=== PATIENT | female | born 1960 | race Caucasian/White ===

== ENCOUNTER 2016-09-05 15:40 | Outpatient (CLI) | payer OTHER | END 2016-09-05 15:41 | disposition home or self-care (01) | DX: M51.37 Other intervertebral disc degeneration, lumbosacral region (principal); M16.0 Bilateral primary osteoarthritis of hip ==

== ENCOUNTER 2017-04-07 18:17 | Emergency (ER) | payer OTHER ==
[2017-04-07 18:29] VITALS: BP 120/74
[2017-04-07] MEDS ORDERED: predniSONE 20 MG TABLET PO STA (18:43)
--- NOTE | 2017-04-07 18:45 | ED Physician Documentation ---
History of Present Illness - Stated complaint Stated Complaint: FACIAL RASH - Chief complaint Chief Complaint: Heent - History obtained from History obtained from: Patient (pt is here for evaluation of a rash that she has had for the past couple days around her mouth, no new exposures, no travel, no ABX use, has not had this in the past, no fevers, no problems breathing, no problems swallowing.) Review of Systems Constitutional: denies: Fever, Chills, Myalgias Nose: denies: Rhinorrhea / runny nose Throat: denies: Oral lesions / sores, Sore throat, Swollen tonsils, Swallowed foreign body Cardiac: denies: Chest pain / pressure Respiratory: denies: Dyspnea, Cough GI: denies: Abdominal Pain, Nausea, Vomiting, Diarrhea : denies: Dysuria Skin: reports: Rash (around mouth) Musculoskeletal: denies: Back pain Neurologic: denies: Generalized weakness, Headache, LOC PD PAST MEDICAL HISTORY - Past Medical History Past Medical History: Yes Cardiovascular: [place] - Past Surgical History 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, 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 HEENT: Tonsil/Adenoidectomy - Present Medications Home Medications: Ambulatory Orders Medication Instructions Recorded Confirmed Citalopram [CeleXA] 40 mg PO DAILY 04/12/15 04/07/17 Estradiol 2 mg PO DAILY 04/12/15 04/07/17 traZODone [Desyrel] 50 mg PO QPM 04/12/15 04/07/17 Carvedilol 6.25 mg PO DAILY 04/07/17 04/07/17 Clindamycin Phosphate [Cleocin T] 60 ml TP BID #1 lotion 04/07/17 Gabapentin 300 mg PO QPM 04/07/17 04/07/17 Loratadine [Claritin] 10 mg PO DAILY #20 tablet 04/07/17 predniSONE [Prednisone] 60 mg PO DAILY #6 tablet 04/07/17 - Allergies Allergies/Adverse Reactions: Allergies Allergy/AdvReac Type Severity Reaction Status Date / Time levofloxacin [From Levaquin] Allergy Anaphylaxis Verified 04/07/17 18:29 codeine AdvReac Emesis Verified 04/07/17 18:29 Penicillins AdvReac Unknown Verified 04/07/17 18:29 - Social History Does the pt smoke?: No Smoking Status: Never smoker Does the pt drink ETOH?: Yes Does the pt have substance abuse?: No - Immunizations Immunizations are current?: Yes Immunizations: TDAP current <10years PD ED PE NORMAL - Vitals Vital signs reviewed: Yes - General General: Alert and oriented X 3, Well developed/nourished - HEENT HEENT: Atraumatic, Moist mucous membranes, Pharynx benign - Neck Neck: No adenopathy - Derm Derm: Other (raash located bilateral uner her lower lip, no pustules, no blisters, no crusting. ) - Neuro Neuro: Alert and oriented X 3 - Psych Psych: Normal mood, Normal affect Results - Vitals Vitals: Vital Signs - 24 hr 04/07/17 18:26 Temperature 36.2 C L Heart Rate 67 Respiratory 16 Rate Blood Pressure 120/74 O2 Saturation 97 Oxygen O2 Source Room air PD MEDICAL DECISION MAKING - ED course Complexity details: d/w patient ED course: pt with a rash under her lower lip. is bilateral so less likely zoster. no signs of supra infection. pt w/o oral lesions. Discussed with her. gave the first dose of steroids in the ER will she home with rx for 2 more days. pt given return precautions. Departure - Departure Disposition: 01 Home, Self Care Clinical Impression: Rash Condition: Good Instructions: Rash Skin Self Care Follow-Up: Skinny Prince MD [Primary Care Provider] - Prescriptions: Clindamycin Phosphate [Cleocin T] 60 ml TP BID #1 lotion Loratadine [Claritin] 10 mg PO DAILY #20 tablet predniSONE [Prednisone] 60 mg PO DAILY #6 tablet Comments: Return to the ER for any new or worsening symptoms, problems breathing or any other spread of the rash.
[2017-04-07] MEDS ORDERED: predniSONE 20 MG TABLET ONE (18:51)
== END 2017-04-07 19:02 | disposition home or self-care (01) ==
LOC: ED 18:17
DX: R21 Rash and other nonspecific skin eruption (principal); I25.2 Old myocardial infarction
CPT/HCPCS: 99283; J7512

== ENCOUNTER 2017-08-19 10:41 | Outpatient (CLI) | payer OTHER ==
[2017-08-19 18:54] LABS: BUN - BLOOD UREA NITROGEN 13 mg/dL (6-20); CALCIUM 10.1 mg/dL (8.5-10.3); CARBON DIOXIDE - CO2 30 mmol/L (21-32); CHLORIDE 105 mmol/L (101-111); CHOL/HDL RATIO 2.1 (<4.4); CHOLESTEROL 216 mg/dL; CREATININE 0.8 mg/dL (0.4-1.0); GFR - MDRD 74 (>89); GLUCOSE 85 mg/dL (70-100); HDL CHOLESTEROL 102 mg/dL; LDL CHOLESTEROL,CALCULATED 99 mg/dL; SODIUM 138 mmol/L (135-145); VLDL CHOLESTEROL 15 mg/dL
== END 2017-08-19 10:42 | disposition home or self-care (01) ==
LOC: LAB.F 10:41
PROVIDERS: ATTEND Internal Medicine
DX: Z13.220 Encounter for screening for lipoid disorders (principal); F32.9 Major depressive disorder, single episode, unspecified; Z83.3 Family history of diabetes mellitus
CPT/HCPCS: 36415; 80048; 80061; 83721; 84443

== ENCOUNTER 2017-11-05 13:16 | Outpatient (CLI) | payer OTHER ==
[2017-11-05 17:47] LABS: BASOPHILS % (AUTO) 0.7 %; EOSINOPHILS # (AUTO) 0.1 10^3/uL (0.0-0.7); EOSINOPHILS % (AUTO) 1.7 %; HGB - HEMOGLOBIN 13.1 g/dL (12.0-16.0); LYMPHOCYTES # (AUTO) 1.4 10^3/uL (1.5-3.5); MEAN CORPUSCULAR HEMOGLOBIN 29.8 pg (27.0-31.0); MEAN CORPUSCULAR HGB CONC 32.6 g/dL (32.0-36.0); MEAN CORPUSCULAR VOLUME 91.4 fL (81.0-99.0); MEAN PLATELET VOLUME 8.9 fL (7.9-10.8); MONOCYTES # (AUTO) 0.2 10^3/uL (0.0-1.0); MONOCYTES % (AUTO) 6.8 %; NEUTROPHILS # (AUTO) 1.6 10^3/uL (1.5-6.6); NEUTROPHILS % (AUTO) 48.8 %; PLT - PLATELET COUNT 192 10^3/uL (130-450); RED BLOOD COUNT 4.39 10^6/uL (4.20-5.40); RED CELL DISTRIBUTION WIDTH 12.3 % (12.0-15.0); WHITE BLOOD COUNT 3.3 x10^3/uL (4.8-10.8)
[2017-11-05 17:56] LABS: ALBUMIN 3.7 g/dL (3.2-5.5); ALBUMIN/GLOBULIN RATIO 1.2 (1.0-2.2); ALKALINE PHOSPHATASE 53 IU/L (42-121); ALT ALANINE AMINOTRANSFERASE 17 IU/L (10-60); AST ASPARTATE AMINOTRANSFERASE 21 IU/L (10-42); BILIRUBIN,TOTAL 0.9 mg/dL (0.2-1.0); BUN - BLOOD UREA NITROGEN 14 mg/dL (6-20); CALCIUM 10.4 mg/dL (8.5-10.3); CARBON DIOXIDE - CO2 30 mmol/L (21-32); CHLORIDE 99 mmol/L (101-111); CHOL/HDL RATIO 2.4 (<4.4); CHOLESTEROL 234 mg/dL; CREATININE 0.9 mg/dL (0.4-1.0); GFR - MDRD 65 (>89); GLUCOSE 79 mg/dL (70-100); HDL CHOLESTEROL 99 mg/dL; LDL CHOLESTEROL,CALCULATED 114 mg/dL; LDL/HDL RATIO 1.2 (<4.4); SODIUM 136 mmol/L (135-145); TOTAL PROTEIN 6.9 g/dL (6.7-8.2); VLDL CHOLESTEROL 21 mg/dL
[2017-11-05 17:59] LABS: FREE T3 4.84 pg/mL (2.5-3.9)
[2017-11-05 18:00] LABS: THYROID STIMULATING HORMONE 2.36 uIU/mL (0.34-5.60)
[2017-11-05 18:02] LABS: FREE T4 (FREE THYROXINE) 0.76 ng/dL (0.58-1.64)
[2017-11-06 10:37] LABS: PROGESTERONE <0.5 ng/mL
[2017-11-07 15:41] LABS: MYCOPLASMA PNEUMONIAE IGM 597 U/mL
== END 2017-11-05 13:17 | disposition home or self-care (01) ==
LOC: LAB.F 13:16
PROVIDERS: ATTEND Naturopath
DX: Z00.01 Encounter for general adult medical examination with abnormal findings (principal); Z13.0 Encounter for screening for diseases of the blood and blood-forming organs and certain disorders involving the immune mechanism; Z12.4 Encounter for screening for malignant neoplasm of cervix; Z13.1 Encounter for screening for diabetes mellitus; Z13.220 Encounter for screening for lipoid disorders; Z13.21 Encounter for screening for nutritional disorder; Z13.29 Encounter for screening for other suspected endocrine disorder; Z90.710 Acquired absence of both cervix and uterus; R53.83 Other fatigue; N95.1 Menopausal and female climacteric states
CPT/HCPCS: 36415; 80053; 80061; 81599; 82672; 83721; 84144; 84403; 84439; 84443; 84480; 84481; 85025; 86141; 86644; 86645; 86663; 86664; 86665; 86738

== ENCOUNTER 2017-11-08 08:37 | Outpatient (CLI) | payer OTHER ==
[2017-11-11 12:46] LABS: THYROID PEROXIDASE ANTIBODIES 2 IU/mL (<9)
[2017-11-14 15:07] LABS: MYCOPLASMA PNEUMONIAE IGM 623 U/mL
[2017-11-14 16:21] LABS: T3 REVERSE 20 ng/dL (8-25)
[2017-11-15 16:53] LABS: ENDOMYSIAL ANTIBODY SCR IGA NEGATIVE (NEGATIVE); GLIADIN (DEAMIDATED) AB IGA 3 U (<20); GLIADIN (DEAMIDATED) AB IGG 4 U (<20); IMMUNOGLOBULIN A 124 mg/dL (81-463); TISSUE TRANSGLUTAMINASE IGA <1 U/mL; TISSUE TRANSGLUTAMINASE IGG <1 U/mL
== END 2017-11-08 08:38 | disposition home or self-care (01) ==
LOC: LAB.F 08:37
PROVIDERS: ATTEND Naturopath
DX: E83.52 Hypercalcemia (principal); N18.2 Chronic kidney disease, stage 2 (mild); L29.9 Pruritus, unspecified; D72.819 Decreased white blood cell count, unspecified; R14.0 Abdominal distension (gaseous); R53.83 Other fatigue; H10.403 Unspecified chronic conjunctivitis, bilateral; R94.6 Abnormal results of thyroid function studies
CPT/HCPCS: 36415; 81599; 82306; 82784; 83516; 83970; 84482; 86038; 86256; 86376; 86644; 86645; 86663; 86664; 86665; 86710; 86738; 86800

== ENCOUNTER 2017-11-28 11:50 | Outpatient (CLI) | payer SELFPAY ==
--- NOTE | 2017-11-29 10:10 | Ultrasound Report ---
Procedure Date: 11/28/2017 Accession Number: [id number] / [id number] Procedure: US - Head or Neck Soft Tissue CPT Code: FULL RESULT: EXAM: THYROID ULTRASOUND EXAM DATE: 11/28/2017 02:00 PM. CLINICAL HISTORY: HYPERCALCEMIA, STAGE 2 CKD, OSTEOPENIA, OSTEOPOROSES. COMPARISON: None. TECHNIQUE: Real time sonographic imaging of the thyroid was performed by the streetcar repairer. Multiple abrasives sales representative static images were saved for review. FINDINGS: THYROID GLAND: Right Lobe: 5.5 x 1.5 x 1.3 cm, volume 5.6 cc. Normal background echotexture. Right Lobe Nodules: Superior pole 5 x 3 x 4 mm cyst Left Lobe: 5.3 x 1.6 x 1.6 cm, volume 7.1 cc. Normal background echotexture. Left Lobe Nodules: 1. Superior pole cystic solid 0.8 x 0.5 x 0.6 cm noncalcified 2. Superior posterior hypoechoic 1.4 x 1.1 x 1 cm noncalcified 3. Midpole 0.4 cm cyst Isthmus: 0.2 cm AP. Isthmic Nodules: None. LYMPH NODES: No adenopathy demonstrated in the central or lateral compartment. OTHER: Adjacent to the inferior pole of the right thyroid gland dorsal surface is a hypoechoic 1.5 x 0.4 x 0.8 cm oval nodule with vascularity IMPRESSION: 1. Possible parathyroid adenoma 1.5 x 0.4 x 0.8 cm adjacent to the inferior pole of the right thyroid gland dorsal surface 2. Follow-up for the thyroid nodules can be in 12 months. Management recommendations are based on 2015 [place] [employer] Management Guidelines for Adult Patients with Thyroid Nodules and Differentiated Thyroid Cancer. RADIA
== END 2017-11-28 11:51 | disposition home or self-care (01) ==
LOC: DI 11:50
PROVIDERS: ATTEND Naturopath
DX: E04.2 Nontoxic multinodular goiter (principal)
CPT/HCPCS: 76536

== ENCOUNTER 2017-11-29 08:14 | Outpatient (CLI) | payer SELFPAY ==
--- NOTE | 2017-11-29 10:36 | DEXA Report ---
Procedure Date: 11/29/2017 Accession Number: [id number] / [id number] Procedure: DEX - Dexa Spine and/or Hip CPT Code: FULL RESULT: EXAM: Dexa Spine and/or Hip DATE: 11/29/2017 9:00 AM CLINICAL HISTORY: HYPERCALCEMIA, STAGE 2 CKD, OSTEOPENIA, OSTEOPROS TECHNIQUE: Dual energy x-ray absorptiometry (DXA) was performed on a [employer] System. Regions measured are the AP Spine, femoral neck, and if needed forearm. COMPARISON: None. In accordance with the International Society for Clinical Densitometry (ISCD) guidelines, data from previous exams may be reanalyzed using current recommendations and techniques. This is done to allow a more accurate basis for comparison with the current study. FINDINGS: The data for the lumbar spine is as follows: BMD (g/cm/cm) T-SCORE Z-SCORE REGION L1 1.221 0.8 1.9 L2 1.243 0.4 1.5 L3 1.394 1.6 2.7 L4 1.251 0.4 1.5 TOTAL 1.277 0.8 1.9 NOTE: All evaluable vertebrae are used for classification The data for the hip is as follows: BMD (g/cm/cm) T-SCORE Z-SCORE REGION Neck 0.841 -1.4 -0.2 TOTAL 0.926 -0.6 0.2 NOTE: The femoral neck or total proximal femur, whichever is lowest, is used for classification. IMPRESSION: THE WHO CLASSIFICATION BASED ON THE INTERNATIONAL REFERENCE STANDARD IS NORMAL. THE FRACTURE RISK IS NOT INCREASED. RECOMMENDATION: Patients with diagnosis of osteoporosis or osteopenia should have regular bone mineral density assessment. For those eligible for Medicare, routine testing is allowed once every 2 years. Testing frequency can be increased for patients who have rapidly progressing disease or for those who are receiving medical therapy to restore bone mass. COMMENT: World Health Organization (WHO) definitions for osteoporosis and osteopenia: NORMAL BMD: T-score at -1.0 or higher, fracture risk is low OSTEOPENIA BMD: T-score between -1.0 and -2.5, fracture risk is increased. OSTEOPOROSIS BMD: T-score at -2.5 or lower, fracture risk is high. National Osteoporosis Foundation recommends: 1. Obtain adequate dietary calcium (at least 1200 mg per day) and vitamin D (400-800 international units per day). 2. Participate, as appropriate, in regular weightbearing and muscle-strengthening exercise. 3. Avoid tobacco use and reduce alcohol and caffeine intake. 4. For more detailed information see the website at www.NOF.org.
== END 2017-11-29 08:15 | disposition home or self-care (01) ==
LOC: DI 08:14
PROVIDERS: ATTEND Naturopath
DX: M85.88 Other specified disorders of bone density and structure, other site (principal); N18.2 Chronic kidney disease, stage 2 (mild)
CPT/HCPCS: 77080

== ENCOUNTER 2017-12-20 10:56 | Outpatient (CLI) | payer OTHER ==
[~2017-12-20 10:56] MED LIST: IOPAMIDOL-300 100 ML VIAL ONE
[2017-12-20] MEDS ORDERED: IOPAMIDOL-300 100 ML VIAL IVP ONE (11:32)
--- NOTE | 2017-12-20 12:25 | CT Report ---
Procedure Date: 12/20/2017 Accession Number: [id number] / [id number] Procedure: CT - Abdomen W/WO CPT Code: FULL RESULT: EXAM: CT ABDOMEN WITHOUT AND WITH CONTRAST EXAM DATE: 12/20/2017 11:40 AM. HISTORY: Adrenal mass. Hypercalcemia. Hyperparathyroidism. COMPARISON: None. TECHNIQUE: Routine helical CT imaging was performed through the abdomen before and after administration of IV contrast: 100 mL Isovue 300. Enteric contrast: No. Reconstruction: Coronal and sagittal. In accordance with CT protocol optimization, one or more of the following dose reduction techniques were utilized for this exam: automated exposure control, adjustment of mA and/or KV based on patient size, or use of iterative reconstructive technique. FINDINGS: Lung Bases: Unremarkable. Liver: The visualized portions are normal. No masses. Gallbladder/Bile Ducts: Unremarkable. Spleen: Normal. Pancreas: Normal. No masses or ductal obstruction. Adrenal Glands: Normal. No mass or nodule demonstrated. Kidneys: Several small nonobstructing stones are seen in the kidneys bilaterally measuring 2-3 mm. There is no hydronephrosis. There is no mass. Peritoneal Cavity/Bowel: Visualized bowel loops are intact. There is no free fluid or free air demonstrated. Vasculature: No aneurysms or other significant abnormality. Bones: No significant abnormality. Other: None. IMPRESSION: 1. Normal adrenal glands. No nodule or mass demonstrated. 2. Bilateral nephrolithiasis without hydronephrosis. RADIA
== END 2017-12-20 10:57 | disposition home or self-care (01) ==
LOC: DI 10:56
PROVIDERS: ATTEND Naturopath
DX: E83.52 Hypercalcemia (principal); E21.3 Hyperparathyroidism, unspecified; N20.0 Calculus of kidney
CPT/HCPCS: 74170; Q9967

== ENCOUNTER 2018-01-01 08:25 | Outpatient (CLI) | payer OTHER ==
[2018-01-01 09:13] LABS: CALCIUM 10.7 mg/dL (8.5-10.3); CREATININE 0.9 mg/dL (0.4-1.0)
[2018-01-01 09:50] LABS: THYROID STIMULATING HORMONE 3.79 uIU/mL (0.34-5.60)
[2018-01-01 09:52] LABS: FREE T4 (FREE THYROXINE) 0.82 ng/dL (0.58-1.64)
== END 2018-01-01 08:26 | disposition home or self-care (01) ==
LOC: LAB 08:25
PROVIDERS: ATTEND Internal Medicine Endocrinology, Diabetes & Metabolism
DX: E21.3 Hyperparathyroidism, unspecified (principal)
CPT/HCPCS: 36415; 82310; 82340; 82565; 84439; 84443

== ENCOUNTER 2018-01-18 08:00 | Outpatient (CLI) | payer OTHER ==
[2018-01-18 08:21] LABS: CREATININE,URINE 74.5 mg/dL
== END 2018-01-18 08:01 | disposition home or self-care (01) ==
LOC: LAB.R 08:00
PROVIDERS: ATTEND Internal Medicine Endocrinology, Diabetes & Metabolism
DX: E21.3 Hyperparathyroidism, unspecified (principal)
CPT/HCPCS: 82570

== ENCOUNTER 2018-01-27 09:44 | Day surgery (SDC) | payer OTHER ==
[2018-01-27] MEDS ORDERED: LACTATED RINGERS 1,000 ML IV ONE ×2 (10:35→12:41)
[2018-01-27] MEDS ORDERED: fentaNYL 100 MCG/2 ML VIAL IVP ONE (12:06)
[2018-01-27] MEDS ORDERED: MIDAZOLAM 2 MG/2 ML VIAL IVP ONE (12:06)
[2018-01-27 13:29] VITALS: BP 105/57
== END 2018-01-27 09:45 | disposition home or self-care (01) ==
LOC: SDS 09:44
PROVIDERS: ATTEND Surgery
PROC: 0DJD8ZZ Inspection of Lower Intestinal Tract, Via Natural or Artificial Opening Endoscopic (ICD-10-PCS; principal; 2018-01-27 11:15)
DX: Z12.11 Encounter for screening for malignant neoplasm of colon (principal); K64.8 Other hemorrhoids
CPT/HCPCS: 45378; J7120

== ENCOUNTER 2018-02-10 16:00 | Emergency (ER) | payer OTHER ==
[2018-02-10 16:08] VITALS: BP 102/64
[2018-02-10] MEDS ORDERED: BUFFERED LIDOCAINE 10 ML SYRINGE SUBQ ONE (16:36)
--- NOTE | 2018-02-10 16:37 | ED Physician Documentation ---
PD HPI UPPER EXT INJURY - Stated complaint Stated Complaint: WRIST LAC - Chief complaint Chief Complaint: Laceration - History obtained from History obtained from: Patient - History of Present Illness Location: Right (She actually cut her wrist and hand on broken glass at home just prior to arrival. 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 HEENT: Tonsil/Adenoidectomy - Present Medications Home Medications: Ambulatory Orders Medication Instructions Recorded Confirmed Citalopram [CeleXA] 40 mg PO DAILY 04/12/15 01/27/18 Estradiol 2 mg PO DAILY 04/12/15 01/27/18 traZODone [Desyrel] 50 mg PO QPM 04/12/15 01/27/18 - Allergies Allergies/Adverse Reactions: Allergies Allergy/AdvReac Type Severity Reaction Status Date / Time levofloxacin [From Levaquin] Allergy Anaphylaxis Verified 02/10/18 16:08 codeine AdvReac Emesis Verified 02/10/18 16:08 Penicillins AdvReac Unknown Verified 02/10/18 16:08 - Social History Does the pt smoke?: No Smoking Status: Never smoker Does the pt drink ETOH?: Yes Does the pt have substance abuse?: No - Immunizations Immunizations are current?: Yes Immunizations: TDAP current <10years PD ED PE NORMAL - Vitals Vital signs reviewed: Yes - General General: Alert and oriented X 3, No acute distress - Extremities Extremities: Other (On the anterior side of the right wrist just proximal to the flexor crease there is a 2 cm somewhat jagged laceration and there is a puncture wound on the mid palm. She has normal neurovascular function in all the digits.) - Neuro Neuro: Alert and oriented X 3, Normal speech Results - Vitals Vitals: Vital Signs - 24 hr 02/10/18 16:05 Temperature 36.2 C L Heart Rate 70 Respiratory 16 Rate Blood Pressure 102/64 O2 Saturation 97 Oxygen O2 Source Room air - Rads (name of study) 2v R wrist Radiology: EMP read contemporaneously (no obvious glass fb) Procedures - Laceration (location) R wrist Length in cm: 2 Wound type: Linear Neurovascular status: Sensory intact, Motor intact, Vascular intact Tendon involvement: Tendon intact (Good flexion of each digit) Anesthesia: Lidocaine 1%, With bicarb Wound Preparation: Hibiclens, Irrigated copiously NS Skin layer closure: Nylon, Size #-0 - enter number (5-0), Sutures - enter # (4) Other: Tetanus UTD Complexity: Simple R palm Length in cm: 1 Wound type: Stellate, Superficial Anesthesia: Lidocaine 1%, With bicarb Wound Preparation: Hibiclens, Irrigated copiously NS Skin layer closure: Nylon, Size #-0 - enter number (5-0), Sutures - enter # (2) Other: Tetanus UTD Complexity: Simple PD MEDICAL DECISION MAKING - ED course ED course: 57-year-old woman with a wrist laceration, unintentional. It was sutured. An x-ray shows no glass foreign body. She does not appear to have a tendon or nerve injury. She also notes a yeast infection and was given diflucan for same. - Sepsis Event Vital Signs: Vital Signs - 24 hr 02/10/18 16:05 Temperature 36.2 C L Heart Rate 70 Respiratory 16 Rate Blood Pressure 102/64 O2 Saturation 97 Oxygen O2 Source Room air Departure - Departure Disposition: 01 Home, Self Care Clinical Impression: Laceration Condition: Good Record reviewed to determine appropriate education?: Yes Instructions: ED Laceration All Comments: Come back for any signs of infection which would include: Redness, swelling, drainage, increased pain, or fevers. Follow-up with your physician in 14 days for suture removal.
[2018-02-10] MEDS ORDERED: BUFFERED LIDOCAINE 10 ML SYRINGE ONE (16:50)
[2018-02-10] MEDS ORDERED: FLUCONAZOLE 100 MG TABLET PO STA (17:01)
[2018-02-10] MEDS ORDERED: BACITRACIN OINT TOP ONE (17:03)
--- NOTE | 2018-02-10 17:24 | XRAY Report ---
Reason: poss glass fb Procedure Date: 02/10/2018 Accession Number: [id number] / [id number] Procedure: XR - Wrist 2 View RT CPT Code: FULL RESULT: EXAM: RIGHT WRIST RADIOGRAPHY EXAM DATE: 02/10/2018 05:12 PM. CLINICAL HISTORY: Possible glass fb. Anterior wrist laceration after breaking glass window. COMPARISON: None. TECHNIQUE: 2 views. FINDINGS: Bones: Normal. No fractures or bone lesions. Joints: Normal. No subluxations. Soft Tissues: There appears to be a laceration at the volar aspect of the proximal wrist. No radiopaque foreign body. IMPRESSION: No radiopaque foreign body. RADIA
== END 2018-02-10 17:31 | disposition home or self-care (01) ==
LOC: ED 16:00
DX: S61.511A Laceration without foreign body of right wrist, initial encounter (principal); S61.411A Laceration without foreign body of right hand, initial encounter; W25.XXXA Contact with sharp glass, initial encounter; Y92.009 Unspecified place in unspecified non-institutional (private) residence as the place of occurrence of the external cause
CPT/HCPCS: 12002; 73100; 99283; A9270

== ENCOUNTER 2018-02-16 17:26 | Emergency (ER) | payer OTHER ==
[2018-02-16] MEDS ORDERED: PHENAZOPYRIDINE 100 MG TABLET PO STA (17:43)
--- NOTE | 2018-02-16 17:44 | ED Physician Documentation ---
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, 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 HEENT: Tonsil/Adenoidectomy - Present Medications Home Medications: Ambulatory Orders Medication Instructions Recorded Confirmed Citalopram [CeleXA] 40 mg PO DAILY 04/12/15 01/27/18 Estradiol 1 mg PO DAILY 04/12/15 01/27/18 traZODone [Desyrel] 50 mg PO QPM 04/12/15 01/27/18 Phenazopyridine HCl [Pyridium] 200 mg PO TID PRN #6 tablet 02/16/18 Sulfamethoxazole/Trimethoprim 1 each PO BID #10 tablet 02/16/18 [Sulfamethoxazole-Tmp Ds Tablet] - Allergies Allergies/Adverse Reactions: Allergies Allergy/AdvReac Type Severity Reaction Status Date / Time levofloxacin [From Levaquin] Allergy Anaphylaxis Verified 02/16/18 17:33 codeine AdvReac Emesis Verified 02/16/18 17:33 Penicillins AdvReac Unknown Verified 02/16/18 17:33 - Social History Does the pt smoke?: No Smoking Status: Never smoker Does the pt drink ETOH?: Yes Does the pt have substance abuse?: No - Immunizations Immunizations are current?: Yes Immunizations: TDAP current <10years PD ED PE NORMAL - Vitals Vital signs reviewed: Yes - General General: Alert and oriented X 3, No acute distress - Abdomen Abdomen: Non tender - Back Back: No CVA TTP, No spinal TTP - Extremities Extremities: Other (Right wrist was sutured by me a week ago, very slight redness around the wrist suture line but no dehiscence.) - Neuro Neuro: Alert and oriented X 3, Normal speech Results - Vitals Vitals: Vital Signs - 24 hr 02/16/18 17:31 Temperature 36.7 C Heart Rate 63 Blood Pressure 107/65 O2 Saturation 99 Oxygen O2 Source Room air PD MEDICAL DECISION MAKING - ED course ED course: She has cystitis and is treated with sulfa for same. Her suture line looks mildly red and the sulfa should cover this as well, she also notes that she was stepped on by horse yesterday and has a bruise on the left calf but no bony tenderness or limp. - Sepsis Event Vital Signs: Vital Signs - 24 hr 02/16/18 17:31 Temperature 36.7 C Heart Rate 63 Blood Pressure 107/65 O2 Saturation 99 Oxygen O2 Source Room air Departure - Departure Disposition: 01 Home, Self Care Clinical Impression: Cystitis Condition: Good Record reviewed to determine appropriate education?: Yes Instructions: ED UTI Cystitis Female Prescriptions: Phenazopyridine HCl [Pyridium] 200 mg PO TID PRN #6 tablet PRN Reason: dysuria Sulfamethoxazole/Trimethoprim [Sulfamethoxazole-Tmp Ds Tablet] 1 each PO BID #10 tablet Comments: We will culture your urine, the results should be done in 48-72 hours. If an antibiotic change is necessary we will call you. Return if worse in the meantime, especially if you develop increasing flank pain, fevers, or cannot keep down the medication.
[2018-02-16 17:53] LABS: BILIRUBIN,URINE NEGATIVE (NEGATIVE); CLARITY,URINE HAZY (CLEAR); GLUCOSE, URINE (UA) NEGATIVE (NEGATIVE); KETONES,URINE (UA) NEGATIVE (NEGATIVE); LEUKOCYTE ESTERASE, URINE SMALL (NEGATIVE); NITRITE,URINE NEGATIVE (NEGATIVE); OCCULT BLOOD,URINE LARGE (NEGATIVE); PH,URINE 5.5 PH (5.0-7.5); PROTEIN,URINE 30 mg/dL (NEGATIVE); UROBILINOGEN,URINE 0.2 (NORMAL) E.U./dL (NORMAL)
[2018-02-16 18:02] LABS: BACTERIA,URINE None Seen /HPF (None Seen); RBC,URINE TNTC /HPF (0-5); SQUAMOUS EPITHELIAL CELL,UR FEW Squamous (<= Few)
[2018-02-16] MEDS ORDERED: SULFAMETH/TRIMETH DS 800/160 MG TABLET PO STA (18:10)
[2018-02-16 18:21] VITALS: BP 132/68
== END 2018-02-16 18:20 | disposition home or self-care (01) ==
LOC: ED 17:26
DX: N30.90 Cystitis, unspecified without hematuria (principal); I25.2 Old myocardial infarction
CPT/HCPCS: 81001; 87086; 87181; 99283; A9270; 81003

== ENCOUNTER 2018-08-21 07:37 | Outpatient (CLI) | payer MEDICAID ==
[2018-08-21 13:05] LABS: ALBUMIN 3.9 g/dL (3.2-5.5); ALBUMIN/GLOBULIN RATIO 1.4 (1.0-2.2); BILIRUBIN,TOTAL 0.9 mg/dL (0.2-1.0); CALCIUM 9.1 mg/dL (8.5-10.3); CREATININE 0.8 mg/dL (0.4-1.0); TOTAL PROTEIN 6.7 g/dL (6.7-8.2)
[2018-08-21 13:25] LABS: THYROID STIMULATING HORMONE 2.83 uIU/mL (0.34-5.60)
[2018-08-21 13:31] LABS: PROLACTIN 9.34 ng/mL
[2018-08-21 13:52] LABS: FOLLICLE STIMULATING HORMONE 92.62 mIU/mL
[2018-08-21 13:53] LABS: LUTEINIZING HORMONE 47.92 mIU/mL
== END 2018-08-21 07:38 | disposition home or self-care (01) ==
LOC: LAB.F 07:37
PROVIDERS: ATTEND Physician Assistant Medical
DX: D49.7 Neoplasm of unspecified behavior of endocrine glands and other parts of nervous system (principal); N95.1 Menopausal and female climacteric states; Z13.29 Encounter for screening for other suspected endocrine disorder
CPT/HCPCS: 36415; 80053; 82670; 83001; 83002; 83970; 84146; 84443

== ENCOUNTER 2018-09-23 08:00 | Outpatient (CLI) | payer MEDICAID | END 2018-09-23 23:59 | disposition home or self-care (01) | LOC: LAB.R 08:00 | PROVIDERS: ATTEND Obstetrics & Gynecology | DX: R30.0 Dysuria (principal) | CPT/HCPCS: 87086 ==

== ENCOUNTER 2019-07-17 20:30 | Emergency (ER) | payer OTHER, MEDICAID ==
--- NOTE | 2019-07-17 20:48 | ED Physician Documentation ---
PD HPI ABD PAIN - Stated complaint Stated Complaint: ABD PX/N/V/D - Chief complaint Chief Complaint: Abd Pain - History obtained from History obtained from: Patient - History of Present Illness Timing - onset: How many weeks ago (5) Timing - details: Abrupt onset, Intermittant Pain level now: 6 Quality: Pain Location: RLQ Improved by: Other (no ameliorating factors) Worsened by: Eating Associated symptoms: Nausea, Vomiting, Diarrhea. No: Fever Similar symptoms before: Has not had sx before Recently seen: Not recently seen - Additional information Additional information: c/o 5 weeks of nausea, "chronic diarrhea situation" (per patient). Emesis x 3 over past week, each episode associated with diarrhea. 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 HEENT: Tonsil/Adenoidectomy - Present Medications Home Medications: Ambulatory Orders Medication Instructions Recorded Confirmed Citalopram [CeleXA] 40 mg PO DAILY 04/12/15 01/27/18 estradioL [Estradiol] 1 mg PO DAILY 04/12/15 01/27/18 traZODone [Desyrel] 50 mg PO QPM 04/12/15 01/27/18 Phenazopyridine HCl [Pyridium] 200 mg PO TID PRN #6 tablet 02/16/18 Sulfamethoxazole/Trimethoprim 1 each PO BID #10 tablet 02/16/18 [Sulfamethoxazole-Tmp Ds Tablet] Ondansetron Odt [Zofran] 4 mg TL Q6H PRN #14 tablet 07/17/19 - Allergies Allergies/Adverse Reactions: Allergies Allergy/AdvReac Type Severity Reaction Status Date / Time levofloxacin [From Levaquin] Allergy Anaphylaxis Verified 07/17/19 20:43 codeine AdvReac Emesis Verified 07/17/19 20:43 Penicillins AdvReac Unknown Verified 07/17/19 20:43 - Social History Does the pt smoke?: No Smoking Status: Never smoker Does the pt drink ETOH?: Yes Does the pt have substance abuse?: No - Immunizations Immunizations are current?: Yes Immunizations: TDAP current <10years PD ED PE NORMAL - Vitals Vital signs reviewed: Yes - General General: Alert and oriented X 3, No acute distress, Well developed/nourished - HEENT HEENT: Moist mucous membranes - Cardiac Cardiac: RRR, No murmur - Respiratory Respiratory: No respiratory distress, Clear bilaterally - Abdomen Abdomen: Soft, Non distended, Other (RLQ tenderness without rebound) - Back Back: No CVA TTP - Derm Derm: No rash Results - Vitals Vitals: Vital Signs - 24 hr 07/17/19 07/17/19 07/17/19 20:35 21:15 23:18 Temperature 37.1 C 36.6 C Heart Rate 70 76 70 Respiratory 16 18 18 Rate Blood Pressure 118/82 H 129/89 H 104/71 O2 Saturation 97 97 98 Oxygen O2 Source Room air - Labs Labs: Laboratory Tests 07/17/19 07/17/19 07/17/19 20:55 20:55 21:18 WBC 4.6 L RBC 4.73 Hgb 14.3 Hct 45.1 MCV 95.3 MCH 30.2 MCHC 31.7 L RDW 12.1 Plt Count 224 MPV 10.0 Neut # (Auto) 2.0 Lymph # (Auto) 2.0 [place] # (Auto) 0.4 Eos # (Auto) 0.1 Baso # (Auto) 0.0 Absolute Nucleated RBC 0.00 Nucleated RBC % 0.0 Sodium 139 Potassium 4.0 Chloride 103 Carbon Dioxide 29 Anion Gap 7.0 BUN 14 Creatinine 0.9 Estimated GFR (MDRD) 64 L Glucose 89 Calcium 9.1 Total Bilirubin 1.0 AST 15 ALT 13 Alkaline Phosphatase 38 L Total Protein 6.7 Albumin 4.2 Globulin 2.5 Albumin/Globulin Ratio 1.7 Lipase 36 Urine Color YELLOW Urine Clarity CLEAR Urine pH 6.0 Ur Specific [place] 1.010 Urine Protein NEGATIVE Urine Glucose (UA) NEGATIVE Urine Ketones NEGATIVE Urine Occult Blood TRACE-INTA Urine Nitrite NEGATIVE Urine Bilirubin NEGATIVE Urine Urobilinogen 0.2 (NORMAL) Ur Leukocyte Esterase NEGATIVE Ur Microscopic Review NOT INDICATED Urine Culture Comments NOT INDICATED - Rads (name of study) CT A/P Radiology: Prelim report reviewed, See rad report PD MEDICAL DECISION MAKING - ED course Complexity details: reviewed results, re-evaluated patient, considered differential, d/w patient ED course: Patient reported resolution of nausea on reevaluation after IV fluids and zofran. She feels well enough to go home and her lab tests, CT A/P, and UA are reassuring and nondiagnostic. Departure - Departure Disposition: 01 Home, Self Care Clinical Impression: Vomiting, Diarrhea Condition: Good Instructions: ED Vomiting Diarrhea Nonspecific Ad Follow-Up: Natali Gaines ARNP [Primary Care Provider] - Prescriptions: Ondansetron Odt [Zofran] 4 mg TL Q6H PRN #14 tablet PRN Reason: Nausea / Vomiting Discharge Date/Time: 07/17/19 23:36
[2019-07-17 21:01] LABS: BILIRUBIN,URINE NEGATIVE (NEGATIVE); GLUCOSE, URINE (UA) NEGATIVE (NEGATIVE); KETONES,URINE (UA) NEGATIVE (NEGATIVE); LEUKOCYTE ESTERASE, URINE NEGATIVE (NEGATIVE); NITRITE,URINE NEGATIVE (NEGATIVE); OCCULT BLOOD,URINE TRACE-INTA (NEGATIVE); PROTEIN,URINE NEGATIVE (NEGATIVE); UROBILINOGEN,URINE 0.2 (NORMAL) E.U./dL (NORMAL)
[2019-07-17 21:02] LABS: CLARITY,URINE CLEAR (CLEAR)
[2019-07-17] MEDS ORDERED: SODIUM CHLORIDE 0.9% 1,000 ML IV STA (21:06)
[2019-07-17] MEDS ORDERED: ONDANSETRON 4 MG/2 ML VIAL IVP STA (21:06)
[2019-07-17 21:14] LABS: BASOPHILS % (AUTO) 0.9 %; EOSINOPHILS # (AUTO) 0.1 10^3/uL (0.0-0.7); EOSINOPHILS % (AUTO) 2.9 %; HGB - HEMOGLOBIN 14.3 g/dL (12.0-16.0); LYMPHOCYTES % (AUTO) 42.9 %; MEAN CORPUSCULAR HEMOGLOBIN 30.2 pg (27.0-31.0); MEAN CORPUSCULAR HGB CONC 31.7 g/dL (32.0-36.0); MEAN CORPUSCULAR VOLUME 95.3 fL (81.0-99.0); MONOCYTES # (AUTO) 0.4 10^3/uL (0.0-1.0); MONOCYTES % (AUTO) 8.4 %; NEUTROPHILS % (AUTO) 44.7 %; PLT - PLATELET COUNT 224 10^3/uL (130-450); RED BLOOD COUNT 4.73 10^6/uL (4.20-5.40); RED CELL DISTRIBUTION WIDTH 12.1 % (12.0-15.0); WHITE BLOOD COUNT 4.6 x10^3/uL (4.8-10.8)
[2019-07-17] MEDS ORDERED: IOVERSOL 320 100 ML VIAL IVP ONE ×2 (21:21→22:11)
[2019-07-17 21:36] LABS: ALBUMIN 4.2 g/dL (3.2-5.5); ALBUMIN/GLOBULIN RATIO 1.7 (1.0-2.2); CALCIUM 9.1 mg/dL (8.5-10.3); CREATININE 0.9 mg/dL (0.4-1.0); TOTAL PROTEIN 6.7 g/dL (6.7-8.2)
--- NOTE | 2019-07-17 22:23 | CT Report ---
Reason: RLQ pain,tenderness Procedure Date: 07/17/2019 Accession Number: [id number] / [id number] Procedure: CT - Abdomen/Pelvis W CPT Code: Final Report FULL RESULT: EXAM: CT ABDOMEN AND PELVIS EXAM DATE: 07/17/2019 10:09 PM. CLINICAL HISTORY: RLQ pain, tenderness. COMPARISONS: ABDOMEN W/WO 12/20/2017 11:20 AM. TECHNIQUE: Routine helical CT imaging was performed through the abdomen and pelvis. IV contrast: OPTIRAY 320. Enteric contrast: No. Reconstructions: Coronal and sagittal. In accordance with CT protocol optimization, one or more of the following dose reduction techniques were utilized for this exam: automated exposure control, adjustment of mA and/or KV based on patient size, or use of iterative reconstructive technique. FINDINGS: Lung Bases: Unremarkable. Liver: Normal. No masses. Gallbladder/Bile Ducts: Unremarkable. Spleen: Normal. Pancreas: Normal. Adrenal Glands: Normal. Kidneys: Normal. No masses or hydronephrosis. Peritoneal Cavity/Bowel: Normal. No free fluid, free air or adenopathy. No masses or acute inflammatory process. The appendix is well visualized and normal. There are no inflammatory changes of the colon. There is a moderately large amount of stool within. Pelvic Organs: The uterus is been resected. There are no adnexal masses. Vasculature: No aneurysms or other significant abnormality. Bones: No significant abnormality. Other: None. IMPRESSION: 1. Unremarkable CT scan abdomen and pelvis. Normal appendix. No evidence of bowel obstruction. Moderately large amount of stool within the colon. RADIA
[2019-07-17 23:18] VITALS: BP 104/71
== END 2019-07-17 23:36 | disposition home or self-care (01) ==
LOC: ED 20:30
DX: R11.2 Nausea with vomiting, unspecified (principal); R19.7 Diarrhea, unspecified; R10.31 Right lower quadrant pain
CPT/HCPCS: 36415; 74177; 80053; 81003; 83690; 85025; 96361; 96374; 99284; Q9967; 81001; 87086

== ENCOUNTER 2019-12-29 11:07 | Outpatient (CLI) | payer OTHER, MEDICAID | END 2019-12-29 11:08 | disposition home or self-care (01) | LOC: COV 11:07 | PROVIDERS: ATTEND Family Medicine | DX: R53.83 Other fatigue (principal); J02.9 Acute pharyngitis, unspecified; R09.81 Nasal congestion; R11.2 Nausea with vomiting, unspecified; Z20.828 Contact with and (suspected) exposure to other viral communicable diseases ==

== ENCOUNTER 2020-01-08 08:43 | Outpatient (CLI) | payer OTHER, MEDICAID ==
[2020-01-08 15:41] LABS: T4 (THYROXINE) 7.34 ug/dL (6.09-12.23)
[2020-01-08 15:44] LABS: THYROID STIMULATING HORMONE 2.13 uIU/mL (0.34-5.60)
[2020-01-08 15:49] LABS: TOTAL T3 1.56 ng/mL (0.87-1.78)
[2020-01-08 15:50] LABS: FERRITIN 19.3 ng/mL (11.0-306.8)
== END 2020-01-08 08:44 | disposition home or self-care (01) ==
LOC: LAB.S 08:43
PROVIDERS: ATTEND Nurse Practitioner Family
DX: R53.83 Other fatigue (principal); N95.1 Menopausal and female climacteric states
CPT/HCPCS: 36415; 82306; 82728; 84144; 84436; 84443; 84480

== ENCOUNTER 2020-06-12 08:00 | Outpatient (CLI) | payer OTHER, MEDICAID | END 2020-06-12 23:59 | disposition home or self-care (01) | LOC: LAB.R 08:00 | PROVIDERS: ATTEND Physician Assistant Medical | DX: R30.0 Dysuria (principal) | CPT/HCPCS: 87086 ==

== ENCOUNTER 2020-07-16 15:32 | Emergency (ER) | payer OTHER, MEDICAID ==
[2020-07-16] MEDS ORDERED: ONDANSETRON 4 MG/2 ML VIAL IVP STA (15:59)
[2020-07-16] MEDS ORDERED: SODIUM CHLORIDE 0.9% 1,000 ML IV STA (15:59)
--- NOTE | 2020-07-16 16:01 | ED Physician Documentation ---
History of Present Illness - Stated complaint Stated Complaint: NAUSEA,DIARRHEA,ACHY,FATIGUE,CHILLS - Chief complaint Chief Complaint: General - History obtained from History obtained from: Patient - Additonal information Additional information: 59-year-old woman, previously healthy with history of remote hysterectomy. She had a colonoscopy done here in January 2018 which was normal. For a little over 2 weeks she has had profuse watery diarrhea. It was mucoid after taking Metamucil. She has had cramps with it as long as well as some right upper quadrant tenderness. She is lost 6 pounds in the last 3 days. She has had nausea and intermittent vomiting. No blood from either end. No fevers. No recent travel, sick contacts, or camping. No recent antibiotics. Review of Systems Ten Systems: 10 systems reviewed and negative Constitutional: reports: Fatigue, Weight Loss Cardiac: denies: Chest pain / pressure Respiratory: denies: Cough GI: reports: Abdominal Pain, Nausea, Vomiting, Diarrhea. 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/Adenoidectomy - Present Medications Home Medications: Ambulatory Orders Medication Instructions Recorded Confirmed Citalopram [CeleXA] 40 mg PO DAILY 04/12/15 01/27/18 estradioL [Estradiol] 1 mg PO DAILY 04/12/15 01/27/18 traZODone [Desyrel] 50 mg PO QPM 04/12/15 01/27/18 Phenazopyridine HCl [Pyridium] 200 mg PO TID PRN #6 tablet 02/16/18 Sulfamethoxazole/Trimethoprim 1 each PO BID #10 tablet 02/16/18 [Sulfamethoxazole-Tmp Ds Tablet] Ondansetron Odt [Zofran] 4 mg TL Q6H PRN #14 tablet 07/17/19 - Allergies Allergies/Adverse Reactions: Allergies Allergy/AdvReac Type Severity Reaction Status Date / Time levofloxacin [From Levaquin] Allergy Anaphylaxis Verified 07/16/20 15:44 codeine AdvReac Emesis Verified 07/16/20 15:44 Penicillins AdvReac Unknown Verified 07/16/20 15:44 - Social History Does the pt smoke?: No Smoking Status: Never smoker Does the pt drink ETOH?: Yes Does the pt have substance abuse?: No - Immunizations Immunizations are current?: Yes Immunizations: TDAP current <10years PD ED PE NORMAL - Vitals Vital signs reviewed: Yes - General General: Alert and oriented X 3, No acute distress - HEENT HEENT: PERRL, EOMI - Neck Neck: Supple, no meningeal sign, No bony TTP - Cardiac Cardiac: RRR, No murmur - Respiratory Respiratory: No respiratory distress, Clear bilaterally - Abdomen Abdomen: Normal bowel sounds, Soft, Non tender - Back Back: No CVA TTP, No spinal TTP - Derm Derm: Normal color, Warm and dry - Extremities Extremities: No edema, No calf tenderness / cord - Neuro Neuro: Alert and oriented X 3, Normal speech Results - Vitals Vitals: Vital Signs - 24 hr 07/16/20 07/16/20 07/16/20 15:38 16:41 18:00 Temperature 36.5 C Heart Rate 80 70 79 Respiratory 18 14 16 Rate Blood Pressure 100/78 115/78 105/80 O2 Saturation 99 100 100 07/16/20 19:19 Temperature 36.5 C Heart Rate 72 Respiratory 16 Rate Blood Pressure 109/78 O2 Saturation 100 Oxygen O2 Source Room air - Labs Labs: Laboratory Tests 07/16/20 07/16/20 07/16/20 16:05 16:05 16:05 WBC 1.9 L* RBC 4.77 Hgb 14.5 Hct 44.6 MCV 93.5 MCH 30.4 MCHC 32.5 RDW 12.4 Plt Count 221 MPV 9.6 Neut # (Auto) 0.6 L Lymph # (Auto) 0.9 L [place] # (Auto) 0.3 Eos # (Auto) 0.1 Baso # (Auto) 0.0 Absolute Nucleated RBC 0.00 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 % (Manual) Not Reportable Abnorm Lymph % (Manual) Not Reportable Nucleated RBC % 0.0 Neutrophils # (Manual) Not Reportable Lymphocytes # (Manual) Not Reportable Monocytes # (Manual) Not Reportable Eosinophils # (Manual) Not Reportable Basophils # (Manual) Not Reportable Differential Comment MANUAL=AUTO DIFF Manual Slide Review Indicated WBC Morphology NORMAL APPEARANCE Platelet Estimate NORMAL (130-450,000) Platelet Morphology NORMAL APPEARANCE RBC Morph Micro Appear NORMAL APPEARANCE Sodium 138 Potassium 3.7 Chloride 102 Carbon Dioxide 24 Anion Gap 12.0 BUN 18 Creatinine 0.9 Estimated GFR (MDRD) 64 L Glucose 88 Calcium 9.3 Total Bilirubin 1.0 AST 18 ALT 15 Alkaline Phosphatase 46 Total Protein 7.2 Albumin 4.0 Globulin 3.2 Albumin/Globulin Ratio 1.3 Lipase 26 Urine Color Urine Clarity Urine pH Ur Specific [place] Urine Protein Urine Glucose (UA) Urine Ketones Urine Occult Blood Urine Nitrite Urine Bilirubin Urine Urobilinogen Ur Leukocyte Esterase Ur Microscopic Review Urine Culture Comments Stl C. diff Tox B Gene Infectious [place] Assay NEGATIVE 07/16/20 07/16/20 17:18 17:18 WBC RBC Hgb Hct MCV MCH MCHC RDW Plt Count MPV Neut # (Auto) Lymph # (Auto) [place] # (Auto) Eos # (Auto) Baso # (Auto) Absolute Nucleated RBC Total Counted Band Neuts % (Manual) Abnorm Lymph % (Manual) Nucleated RBC % Neutrophils # (Manual) Lymphocytes # (Manual) Monocytes # (Manual) Eosinophils # (Manual) Basophils # (Manual) Differential Comment Manual Slide Review WBC Morphology Platelet Estimate Platelet Morphology RBC Morph Micro Appear Sodium Potassium Chloride Carbon Dioxide Anion Gap BUN Creatinine Estimated GFR (MDRD) Glucose Calcium Total Bilirubin AST ALT Alkaline Phosphatase Total Protein Albumin Globulin Albumin/Globulin Ratio Lipase Urine Color YELLOW Urine Clarity CLEAR Urine pH 6.0 Ur Specific [place] 1.010 Urine Protein NEGATIVE Urine Glucose (UA) NEGATIVE Urine Ketones NEGATIVE Urine Occult Blood NEGATIVE Urine Nitrite NEGATIVE Urine Bilirubin NEGATIVE Urine Urobilinogen 0.2 (NORMAL) Ur Leukocyte Esterase NEGATIVE Ur Microscopic Review NOT INDICATED Urine Culture Comments NOT INDICATED Stl C. diff Tox B Gene NEGATIVE Infectious [place] Assay PD MEDICAL DECISION MAKING - ED course ED course: 59-year-old woman with 2 weeks of diarrhea. Some weight loss. Appears well.. Sent from urgent care for some abdominal tenderness. CT done w liquid in colon, But otherwise negative. Noted to have neutropenia. Of note she is always had a low white count but this is worse than it has been. I am not sure that is necessarily relevant to today's issue, may be a chronic worsening problem. She does not otherwise have pancytopenia or thrombocytopenia. Follow-up with hematology advised for that. On discharge C. difficile, stool cultures, ova and parasite, cryptosporidium, and Giardia testing pending. Departure - Departure Disposition: Home, Self Care Clinical Impression: Diarrhea Qualifiers: Diarrhea type: unspecified type Qualified Code(s): R19.7 - Diarrhea, unspecified Neutropenia Qualifiers: Neutropenia type: unspecified Qualified Code(s): D70.9 - Neutropenia, unspecified Condition: Good Record reviewed to determine appropriate education?: Yes Instructions: ED Gastroenteritis Report Pend Follow-Up: Albert Villanueva MD [Provider Admit Priv/Credential] - Comments: As discussed, your white count and neutrophil count are low. For that I recommend following up with a menu planner. There are several that have a clinic at this hospital, 1 is listed on this form, it does not necessarily have to be him. Still testing for C. difficile, bacterial causes of diarrhea, Giardia, Cryptosporidium. If anything is positive we will call you. If symptoms are persistent, talk with your doctor about a referral to gastroenterology. Please return immediately if you run a fever. Discharge Date/Time: 07/16/20 19:19
[2020-07-16] MEDS ORDERED: IOVERSOL 320 100 ML VIAL IVP ONE ×2 (16:18→17:43)
[2020-07-16 16:24] LABS: BASOPHILS % (AUTO) 0.5 %; EOSINOPHILS # (AUTO) 0.1 10^3/uL (0.0-0.7); EOSINOPHILS % (AUTO) 2.6 %; HCT - HEMATOCRIT 44.6 % (37.0-47.0); HGB - HEMOGLOBIN 14.5 g/dL (12.0-16.0); LYMPHOCYTES # (AUTO) 0.9 10^3/uL (1.5-3.5); LYMPHOCYTES % (AUTO) 48.2 %; MEAN CORPUSCULAR HEMOGLOBIN 30.4 pg (27.0-31.0); MEAN CORPUSCULAR HGB CONC 32.5 g/dL (32.0-36.0); MEAN CORPUSCULAR VOLUME 93.5 fL (81.0-99.0); MEAN PLATELET VOLUME 9.6 fL (7.9-10.8); MONOCYTES # (AUTO) 0.3 10^3/uL (0.0-1.0); NEUTROPHILS % (AUTO) 33.2 %; PLT - PLATELET COUNT 221 10^3/uL (130-450); RED BLOOD COUNT 4.77 10^6/uL (4.20-5.40); RED CELL DISTRIBUTION WIDTH 12.4 % (12.0-15.0)
[2020-07-16 16:27] LABS: WHITE BLOOD COUNT 1.9 x10^3/uL (4.8-10.8)
[2020-07-16 16:28] LABS: NEUTROPHILS # (AUTO) 0.6 10^3/uL (1.5-6.6); SLIDE REVIEW? Indicated
[2020-07-16 16:36] LABS: ALBUMIN/GLOBULIN RATIO 1.3 (1.0-2.2); CALCIUM 9.3 mg/dL (8.5-10.3); CREATININE 0.9 mg/dL (0.4-1.0); POTASSIUM 3.7 mmol/L (3.5-5.0); TOTAL PROTEIN 7.2 g/dL (6.7-8.2)
[2020-07-16 16:50] LABS: INFECTIOUS MONONUCLEOSIS NEGATIVE (Negative)
[2020-07-16 17:01] LABS: PLATELET ESTIMATE, MANUAL NORMAL (130-450,000) (NORMAL); PLATELET MORPHOLOGY NORMAL APPEARANCE (NORMAL); RBC MORPHOLOGY (MULTIPLE) NORMAL APPEARANCE (NORMAL); WBC MORPHOLOGY (MULTIPLE) NORMAL APPEARANCE (NORMAL)
[2020-07-16 17:02] LABS: DIFFERENTIAL COMMENT MANUAL=AUTO DIFF
[2020-07-16 17:25] LABS: BILIRUBIN,URINE NEGATIVE (NEGATIVE); GLUCOSE, URINE (UA) NEGATIVE (NEGATIVE); KETONES,URINE (UA) NEGATIVE (NEGATIVE); LEUKOCYTE ESTERASE, URINE NEGATIVE (NEGATIVE); NITRITE,URINE NEGATIVE (NEGATIVE); OCCULT BLOOD,URINE NEGATIVE (NEGATIVE); PROTEIN,URINE NEGATIVE (NEGATIVE); UROBILINOGEN,URINE 0.2 (NORMAL) E.U./dL (NORMAL)
[2020-07-16 17:26] LABS: CLARITY,URINE CLEAR (CLEAR)
--- NOTE | 2020-07-16 17:38 | CT Report ---
PROCEDURE: Abdomen/Pelvis W INDICATIONS: IV only, R abd pain CONTRAST: IV CONTRAST: Optiray 320 ml: 100 PO CONTRAST: *NO PO CONTRAST TECHNIQUE: After the administration of intravenous contrast, 5 mm thick sections acquired from the diaphragms to the symphysis. 5 mm thick coronal and sagittal reformats were acquired. For radiation dose reducti on, the following was used: automated exposure control, adjustment of mA and/or kV according to adrianne ent size. COMPARISON: 07/17/2019 FINDINGS: Image quality: Excellent. ABDOMEN: Lung bases: Lung bases are clear. Heart size is normal. Solid organs: Liver and spleen are normal in size and enhancement. Gallbladder is unremarkable. Bi liary system is non dilated. Pancreas enhances normally. No adrenal nodules. Kidneys demonstrate n ormal size and enhancement, without hydronephrosis. Peritoneum and bowel: Bowel loops demonstrate normal wall thickness and caliber. No free fluid or a ir. Diffuse liquid colonic content suggests possible gastroenteritis . Nodes and vessels: No retroperitoneal or mesenteric adenopathy by size criteria. Aorta and inferior vena cava are normal in size. Miscellaneous: No ventral hernias. PELVIS: Genitourinary: Bladder wall thickness is normal. Miscellaneous: No inguinal hernias or adenopathy. Uterus is surgically absent. Bones: No suspicious bony lesions. No vertebral body compression fractures. IMPRESSION: 1. Liquid colonic content suggesting gastroenteritis. 2. Otherwise unremarkable study. Reviewed by: Vinnie French MD on 07/16/2020 4:36 PM [facility] Approved by: Vinnie French MD on 07/16/2020 4:36 PM [facility] Station ID: [id number]
[2020-07-16] MEDS ORDERED: LOPERAMIDE 2 MG CAPSULE PO STA (19:09)
[2020-07-16 19:21] VITALS: BP 109/78
== END 2020-07-16 19:19 | disposition home or self-care (01) ==
LOC: ED 15:32
DX: R19.7 Diarrhea, unspecified (principal); R11.2 Nausea with vomiting, unspecified; R10.11 Right upper quadrant pain; D70.9 Neutropenia, unspecified
CPT/HCPCS: 36415; 74177; 80053; 81003; 81599; 83690; 85025; 86308; 87015; 87177; 87209; 87272; 87329; 87493; 96361; 96374; 99284; A9270; Q9967; 81001; 87045; 87046; 87086

== ENCOUNTER 2020-07-30 19:17 | Emergency (ER) | payer OTHER, MEDICAID ==
[2020-07-30 19:51] LABS: BASOPHILS % (AUTO) 0.5 %; EOSINOPHILS # (AUTO) 0.1 10^3/uL (0.0-0.7); EOSINOPHILS % (AUTO) 0.7 %; HCT - HEMATOCRIT 43.5 % (37.0-47.0); HGB - HEMOGLOBIN 14.5 g/dL (12.0-16.0); LYMPHOCYTES # (AUTO) 1.3 10^3/uL (1.5-3.5); LYMPHOCYTES % (AUTO) 16.3 %; MEAN CORPUSCULAR HEMOGLOBIN 30.3 pg (27.0-31.0); MEAN CORPUSCULAR HGB CONC 33.3 g/dL (32.0-36.0); MEAN CORPUSCULAR VOLUME 90.8 fL (81.0-99.0); MEAN PLATELET VOLUME 9.3 fL (7.9-10.8); MONOCYTES # (AUTO) 0.7 10^3/uL (0.0-1.0); MONOCYTES % (AUTO) 8.5 %; NEUTROPHILS # (AUTO) 5.7 10^3/uL (1.5-6.6); NEUTROPHILS % (AUTO) 73.9 %; PLT - PLATELET COUNT 326 10^3/uL (130-450); RED BLOOD COUNT 4.79 10^6/uL (4.20-5.40); RED CELL DISTRIBUTION WIDTH 12.1 % (12.0-15.0); WHITE BLOOD COUNT 7.7 x10^3/uL (4.8-10.8)
--- NOTE | 2020-07-30 19:51 | XRAY Report ---
PROCEDURE: Chest 1 View X-Ray INDICATIONS: Chest pain TECHNIQUE: One view of the chest was acquired. COMPARISON: 04/12/2015 FINDINGS: Surgical changes and devices: None. Lungs and pleura: No pleural effusions or pneumothorax. Lungs are clear. Mediastinum: Mediastinal contours appear normal. Heart size is normal. Bones and chest wall: No suspicious bony lesions. Overlying soft tissues appear unremarkable. IMPRESSION: No acute cardiopulmonary process demonstrated radiographically. Reviewed by: Jose Quinones MD on 07/30/2020 7:50 PM PDT Approved by: Jose Quinones MD on 07/30/2020 7:50 PM PDT Station ID: [id number]
[2020-07-30 20:07] LABS: ALBUMIN 3.8 g/dL (3.2-5.5); ALBUMIN/GLOBULIN RATIO 1.2 (1.0-2.2); BILIRUBIN,TOTAL 0.9 mg/dL (0.2-1.0); CALCIUM 9.4 mg/dL (8.5-10.3); POTASSIUM 3.5 mmol/L (3.5-5.0); TOTAL PROTEIN 7.1 g/dL (6.7-8.2)
[2020-07-30] MEDS ORDERED: SODIUM CHLORIDE 0.9% 2,000 ML IV STA (20:14)
[2020-07-30 20:19] LABS: MAGNESIUM 1.8 mg/dL (1.7-2.8); PHOSPHORUS 3.9 mg/dL (2.5-4.6)
[2020-07-30] MEDS ORDERED: DIPHENOX/ATROPINE 2.5/0.025 MG TABLET PO STA (20:29)
[2020-07-30] MEDS ORDERED: ONDANSETRON 4 MG/2 ML VIAL IVP STA (20:30)
--- NOTE | 2020-07-30 20:55 | ED Physician Documentation ---
History of Present Illness - Stated complaint Stated Complaint: CHEST HEAVINESS/DIARRHEA - Chief complaint Chief Complaint: Cardiac - History obtained from History obtained from: Patient - History of Present Illness Timing: Other (6 weeks) Pain level max: 0 Pain level now: 0 - Additonal information Additional information: Patient is a 59-year-old female who presents to the emergency department stating that she has felt fluttering in her chest intermittently for the past several days. She has had diarrhea for the past 6 weeks. Nothing seems to make it better or worse. Was here about a month ago, CT scan appeared consistent with gastroenteritis. Her stool studies were all negative. She is awaiting follow- up with hematology and GI. She was neutropenic at the last visit. No changes to her medications. Nothing makes it better or worse. No chest pain. No shortness of breath. Review of Systems Ten Systems: 10 systems reviewed and negative Constitutional: denies: Fever, Chills Ears: denies: Ear pain Nose: denies: Rhinorrhea / runny nose, Congestion Throat: denies: Sore throat Cardiac: denies: Chest pain / pressure, Palpitations Respiratory: denies: Cough GI: reports: Diarrhea. 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 HEENT: Tonsil/Adenoidectomy - Present Medications Home Medications: Ambulatory Orders Medication Instructions Recorded Confirmed Citalopram [CeleXA] 40 mg PO DAILY 04/12/15 07/30/20 estradioL [Estradiol] 1 mg PO DAILY 04/12/15 07/30/20 traZODone [Desyrel] 50 mg PO QPM 04/12/15 07/30/20 Phenazopyridine HCl [Pyridium] 200 mg PO TID PRN #6 tablet 02/16/18 07/30/20 Sulfamethoxazole/Trimethoprim 1 each PO BID #10 tablet 02/16/18 07/30/20 [Sulfamethoxazole-Tmp Ds Tablet] Ondansetron Odt [Zofran] 4 mg TL Q6H PRN #14 tablet 07/17/19 07/30/20 Diphenoxylate/Atropine [Lomotil] 1 tab PO QID PRN #30 tablet 07/30/20 Promethazine [Phenergan] 25 mg PO Q6H PRN #20 tab 07/30/20 - Allergies Allergies/Adverse Reactions: Allergies Allergy/AdvReac Type Severity Reaction Status Date / Time levofloxacin [From Levaquin] Allergy Anaphylaxis Verified 07/30/20 19:21 codeine AdvReac Emesis Verified 07/30/20 19:21 Penicillins AdvReac Unknown Verified 07/30/20 19:21 - Social History Does the pt smoke?: No Smoking Status: Never smoker Does the pt drink ETOH?: Yes Does the pt have substance abuse?: No - Immunizations Immunizations are current?: Yes Immunizations: TDAP current <10years - POLST Patient has POLST: No PD ED PE NORMAL - Vitals Vital signs reviewed: Yes - General General: Alert and oriented X 3, No acute distress, Well developed/nourished - HEENT HEENT: PERRL, Moist mucous membranes - Neck Neck: Supple, no meningeal sign - Cardiac Cardiac: RRR, No murmur, Strong equal pulses - Respiratory Respiratory: No respiratory distress, Clear bilaterally - Abdomen Abdomen: Soft, Non tender, Non distended - Back Back: No CVA TTP, No spinal TTP - Derm Derm: Warm and dry - Extremities Extremities: No edema - Neuro Neuro: Alert and oriented X 3 - Psych Psych: Normal mood, Normal affect Results - Vitals Vitals: Vital Signs - 24 hr 07/30/20 07/30/20 07/30/20 19:21 19:24 19:54 Temperature 37.0 C 37 C 37 C Heart Rate 97 97 82 Respiratory 18 18 15 Rate Blood Pressure 113/57 L 113/57 L 109/80 O2 Saturation 100 100 98 07/30/20 07/30/20 07/30/20 20:24 20:30 21:00 Temperature 37 C 37 C 37 C Heart Rate 74 74 73 Respiratory 12 15 10 L Rate Blood Pressure 110/81 H 111/82 H 108/76 O2 Saturation 97 100 99 07/30/20 22:01 Temperature 35.9 C L Heart Rate 74 Respiratory 18 Rate Blood Pressure 118/75 O2 Saturation 98 Oxygen O2 Source Room air - EKG (time done) 1924 Rate: Rate (enter#) (93) Rhythm: NSR [place]: LAD Intervals: Normal [place] QRS: Normal Ischemia: Non specific changes - Labs Labs: Laboratory Tests 07/30/20 07/30/20 07/30/20 19:42 19:42 19:42 WBC 7.7 RBC 4.79 Hgb 14.5 Hct 43.5 MCV 90.8 MCH 30.3 MCHC 33.3 RDW 12.1 Plt Count 326 MPV 9.3 Neut # (Auto) 5.7 Lymph # (Auto) 1.3 L [place] # (Auto) 0.7 Eos # (Auto) 0.1 Baso # (Auto) 0.0 Absolute Nucleated RBC 0.00 Nucleated RBC % 0.0 Sodium 135 Potassium 3.5 Chloride 98 L Carbon Dioxide 24 Anion Gap 13.0 BUN 18 Creatinine 1.0 Estimated GFR (MDRD) 57 L Glucose 91 Calcium 9.4 Phosphorus Magnesium Total Bilirubin 0.9 AST 16 ALT 12 Alkaline Phosphatase 50 Troponin I High Sens < 2.3 L Total Protein 7.1 Albumin 3.8 Globulin 3.3 Albumin/Globulin Ratio 1.2 Lipase 32 07/30/20 19:42 WBC RBC Hgb Hct MCV MCH MCHC RDW Plt Count MPV Neut # (Auto) Lymph # (Auto) [place] # (Auto) Eos # (Auto) Baso # (Auto) Absolute Nucleated RBC Nucleated RBC % Sodium Potassium Chloride Carbon Dioxide Anion Gap BUN Creatinine Estimated GFR (MDRD) Glucose Calcium Phosphorus 3.9 Magnesium 1.8 Total Bilirubin AST ALT Alkaline Phosphatase Troponin I High Sens Total Protein Albumin Globulin Albumin/Globulin Ratio Lipase PD MEDICAL DECISION MAKING - ED course Complexity details: reviewed old records, reviewed results, re-evaluated patient, considered differential, d/w patient ED course: No significant lab abnormalities. Feels better after IV fluids. We will place her on Lomotil for home. We will also prescribe her Phenergan for any nausea and vomiting she has. She states Imodium made her vomit. Patient's white blood cell count has improved, back to normal range. Possible that she has a prolonged viral illness, causing the initial neutropenia. Recommend that she follow-up with GI for further care. Covid swab was also sent. Patient counseled regarding signs and symptoms for which I believe and urgent re- evaluation would be necessary. Patient with good understanding of and agreement to plan and is comfortable going home at this time This document was made in part using voice recognition software. While efforts are made to proofread this document, sound alike and grammatical errors may occur. Departure - Departure Disposition: 01 Home, Self Care Clinical Impression: Palpitations, Weakness Diarrhea Qualifiers: Diarrhea type: unspecified type Qualified Code(s): R19.7 - Diarrhea, unspecified Condition: Good Instructions: ED Diet Vomiting Diarrhea Follow-Up: Natali Gaines ARNP [Primary Care Provider] - Within 1 week Prescriptions: Diphenoxylate/Atropine [Lomotil] 1 tab PO QID PRN #30 tablet PRN Reason: Diarrhea Promethazine [Phenergan] 25 mg PO Q6H PRN #20 tab PRN Reason: Nausea / Vomiting Comments: Drink plenty of fluids. Return if you worsen. Your laboratory testing does not show any acute abnormalities tonight. Your white blood cell count has improved to 7.7. You will likely need a referral to a GI specialist for further work-up of your diarrhea. All of your stool testing from your last ER visit was normal.
[2020-07-30 22:08] VITALS: BP 118/75
== END 2020-07-30 22:17 | disposition home or self-care (01) ==
LOC: ED 19:17
DX: R00.2 Palpitations (principal); R53.1 Weakness; R19.7 Diarrhea, unspecified; Z20.822 Contact with and (suspected) exposure to COVID-19
CPT/HCPCS: 36415; 71045; 80053; 83690; 83735; 84100; 84484; 85025; 87635; 93005; 96374; 99284; A9270

== ENCOUNTER 2020-09-25 12:21 | Emergency (ER) | payer OTHER, MEDICAID ==
[2020-09-25] MEDS ORDERED: CLINDAMYCIN 900 MG/50 ML 50 ML IV ONE (13:19)
[2020-09-25] MEDS ORDERED: TETANUS/DIPHTHERIA/PERTUSSIS 0.5 ML SYRINGE IM ONE (13:19)
[2020-09-25] MEDS ORDERED: ONDANSETRON 4 MG/2 ML VIAL IVP STA (13:20)
[2020-09-25] MEDS ORDERED: HYDROmorphone 1 MG/ML CARPUJECT IVP STA (13:20)
--- NOTE | 2020-09-25 13:22 | ED Physician Documentation ---
History of Present Illness - Stated complaint Stated Complaint: FEMALE INJURY - Chief complaint Chief Complaint: Laceration - History obtained from History obtained from: Patient - History of Present Illness Timing: How many hours ago (1) Pain level max: 10 Pain level now: 10 - Additonal information Additional information: 59-year-old female presents to the emergency department after falling today and landing on a stick. This lacerated her labia. She states initially had heavy bleeding, decreased now. States she attempted to urinate at home but was unable to urinate. Worse with movement, better with rest. Unknown last tetanus. No other injuries. 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/Adenoidectomy - Present Medications Home Medications: Ambulatory Orders Medication Instructions Recorded Confirmed Citalopram [CeleXA] 40 mg PO DAILY 04/12/15 08/05/20 estradioL [Estradiol] 1 mg PO DAILY 04/12/15 08/05/20 traZODone [Desyrel] 50 mg PO QPM 04/12/15 08/05/20 Phenazopyridine HCl [Pyridium] 200 mg PO TID PRN #6 tablet 02/16/18 08/05/20 Sulfamethoxazole/Trimethoprim 1 each PO BID #10 tablet 02/16/18 08/05/20 [Sulfamethoxazole-Tmp Ds Tablet] Ondansetron Odt [Zofran] 4 mg TL Q6H PRN #14 tablet 07/17/19 08/05/20 Diphenoxylate/Atropine [Lomotil] 1 tab PO QID PRN #30 tablet 07/30/20 08/05/20 Promethazine [Phenergan] 25 mg PO Q6H PRN #20 tab 07/30/20 08/05/20 HYDROcod/ACETAM 5/325 [[place] 5/325] 1 - 2 ea PO Q6H PRN #14 tablet 09/25/20 Ondansetron Odt [Zofran] 4 mg TL Q6H PRN #10 tablet 09/25/20 clindamycin HCL [Cleocin HCl] 300 mg PO Q6H #40 cap 09/25/20 - Allergies Allergies/Adverse Reactions: Allergies Allergy/AdvReac Type Severity Reaction Status Date / Time levofloxacin [From Levaquin] Allergy Anaphylaxis Verified 09/25/20 12:46 codeine AdvReac Emesis Verified 09/25/20 12:46 Penicillins AdvReac Unknown Verified 09/25/20 12:46 - Social History Does the pt smoke?: No Smoking Status: Never smoker Does the pt drink ETOH?: Yes Does the pt have substance abuse?: No - Immunizations Immunizations are current?: Yes Immunizations: TDAP current <10years - POLST Patient has POLST: No PD ED PE NORMAL - Vitals Vital signs reviewed: Yes - General General: Alert and oriented X 3, No acute distress - HEENT HEENT: Moist mucous membranes - Neck Neck: Supple, no meningeal sign - Cardiac Cardiac: RRR - Respiratory Respiratory: No respiratory distress, Clear bilaterally - Abdomen Abdomen: Soft, Non tender, Non distended - 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 ) - Derm Derm: Warm and dry - Neuro Neuro: Alert and oriented X 3 Results - Vitals Vitals: Vital Signs - 24 hr 09/25/20 09/25/20 09/25/20 12:39 13:18 13:33 Temperature 36.3 C L Heart Rate 76 71 68 Respiratory 18 Rate Blood Pressure 118/84 H 129/85 H 110/72 O2 Saturation 99 98 98 09/25/20 14:02 Temperature Heart Rate 63 Respiratory Rate Blood Pressure 113/77 O2 Saturation 95 Oxygen O2 Source Room air - Labs Labs: Laboratory Tests 09/25/20 09/25/20 13:32 13:32 WBC 3.8 L RBC 4.23 Hgb 12.6 Hct 39.8 MCV 94.1 MCH 29.8 MCHC 31.7 L RDW 13.7 Plt Count 200 MPV 9.2 Neut # (Auto) 2.3 Lymph # (Auto) 1.[address] [place] # (Auto) 0.3 Eos # (Auto) 0.1 Baso # (Auto) 0.0 Absolute Nucleated RBC 0.00 Nucleated RBC % 0.0 Sodium 136 Potassium 4.5 Chloride 101 Carbon Dioxide 27 Anion Gap 8.0 BUN 14 Creatinine 0.8 Estimated GFR (MDRD) 73 L Glucose 97 Calcium 9.2 PD MEDICAL DECISION MAKING - ED course Complexity details: reviewed results, re-evaluated patient, considered differential, d/w patient ED course: I consulted Dr. Amaro, gynecology who came to the emergency department and evaluated the patient. She repaired the laceration. We will place the patient on antibiotics for home, pain medication and sits baths. There does not appear to be a urethral injury per Dr. Amaro. She will follow-up in the gynecology clinic at the end of next week, either or Saturday. She will return if she worsens. Patient counseled regarding signs and symptoms for which I believe and urgent re-evaluation would be necessary. Patient with good understanding of and agreement to plan and is comfortable going home at this time This document was made in part using voice recognition software. While efforts are made to proofread this document, sound alike and grammatical errors may occur. Departure - Departure Disposition: Home, Self Care Clinical Impression: Laceration of labia minora Qualifiers: Encounter type: initial encounter Qualified Code(s): S31.41XA - Laceration without foreign body of vagina and vulva, initial encounter Condition: Good Instructions: Sitz Bath, ED Laceration All, ED Wound Care Follow-Up: Alina Amaro MD [Provider Admit Priv/Credential] - Within 1 week Natali Gaines ARNP [Primary Care Provider] - Within 1 week Prescriptions: clindamycin HCL [Cleocin HCl] 300 mg PO Q6H #40 cap HYDROcod/ACETAM 5/325 [[place] 5/325] 1 - 2 ea PO Q6H PRN #14 tablet PRN Reason: Pain Ondansetron Odt [Zofran] 4 mg TL Q6H PRN #10 tablet PRN Reason: Nausea / Vomiting Comments: Follow-up with gynecology at the end of this week, either or Saturday. You were seen by Dr. Amaro today. You should perform sitz bath's as well to help with any swelling and pain. We did prescribe you pain medication for any breakthrough pain. The Zofran will help with any nausea. Take all antibiotics until gone to help prevent infection. Return if you worsen. Do not drink alcohol or drive while on narcotic pain medicine. Note that many narcotic pain relievers also contain tylenol/acetaminophen. Please ensure that your total dose of acetaminophen from all sources does not exceed 3 grams (3000mg) per day. You may constipated on this medication, take a stool softener such as "Colace" twice a day while you are on it. Also recommend a [id number] laxative such as senna or MiraLAX any day that you do not have a bowel movement. If you received narcotic pain medication in the emergency department, do not drive or operate machinery for the next 24 hours.
[2020-09-25 13:37] LABS: BASOPHILS % (AUTO) 0.5 %; EOSINOPHILS # (AUTO) 0.1 10^3/uL (0.0-0.7); EOSINOPHILS % (AUTO) 1.3 %; HCT - HEMATOCRIT 39.8 % (37.0-47.0); HGB - HEMOGLOBIN 12.6 g/dL (12.0-16.0); LYMPHOCYTES # (AUTO) 1.2 10^3/uL (1.5-3.5); LYMPHOCYTES % (AUTO) 30.7 %; MEAN CORPUSCULAR HEMOGLOBIN 29.8 pg (27.0-31.0); MEAN CORPUSCULAR HGB CONC 31.7 g/dL (32.0-36.0); MEAN CORPUSCULAR VOLUME 94.1 fL (81.0-99.0); MEAN PLATELET VOLUME 9.2 fL (7.9-10.8); MONOCYTES # (AUTO) 0.3 10^3/uL (0.0-1.0); MONOCYTES % (AUTO) 7.8 %; NEUTROPHILS # (AUTO) 2.3 10^3/uL (1.5-6.6); NEUTROPHILS % (AUTO) 59.7 %; PLT - PLATELET COUNT 200 10^3/uL (130-450); RED BLOOD COUNT 4.23 10^6/uL (4.20-5.40); RED CELL DISTRIBUTION WIDTH 13.7 % (12.0-15.0); WHITE BLOOD COUNT 3.8 x10^3/uL (4.8-10.8)
[2020-09-25 13:46] LABS: CALCIUM 9.2 mg/dL (8.5-10.3); CREATININE 0.8 mg/dL (0.4-1.0); POTASSIUM 4.5 mmol/L (3.5-5.0)
[2020-09-25] MEDS ORDERED: LIDOCAINE 2%-EPI 1:100000 20 ML MDV SUBQ STA (14:05)
[2020-09-25] MEDS ORDERED: LIDOCAINE 2% URO-JET 5 ML SYRINGE UR STA (14:06)
[2020-09-25] MEDS ORDERED: KETOROLAC 30 MG/ML VIAL IVP STA (14:50)
[2020-09-25 15:03] VITALS: BP 113/75
--- NOTE | 2020-09-25 15:04 | PROCEDURE REPORT ---
Hospitalist Procedure Note - Procedure Note Procedure Note: 59yo postmenopausal female, working in the yard, tipped over and fell on a stick poking upright. [place] her vulva tear and she bled about 3 TBSP of blood. Tried to urinate and it stung so badly that she stopped. Does not feel pain other than the superficial vulva. No pain in the vagina, anus, or rectum. Patient was able to urinate fully in the ER when using a arabella-bottle for dilution. Examination = left labia minora unroofing at 3:00, 17mm long, 5mm deep. Speculum exam without evidence of deeper trauma. No hematomas. Area numbed with urojet followed by 2% lido with epi. Irrigated with 120cc of dilute hibiclens using some pressure via a syringe. Laceration closed with 2 interrupted sutures of 4-0 vicryl. Good druze of normal anatomy. Patient tolerated well. Plan for d/c home on clindamycin. Sitz baths tid for 2-3d. Use arabella bottle while urinating. F/u this week in clinic and sooner PRN signs of infection. Nothing in the vagina for at least 3w.
== END 2020-09-25 15:10 | disposition home or self-care (01) ==
LOC: ED 12:21
DX: S31.41XA Laceration without foreign body of vagina and vulva, initial encounter (principal); W01.198A Fall on same level from slipping, tripping and stumbling with subsequent striking against other object, initial encounter; Y93.H9 Activity, other involving exterior property and land maintenance, building and construction; Y92.007 Garden or yard of unspecified non-institutional (private) residence as the place of occurrence of the external cause; Z23 Encounter for immunization
CPT/HCPCS: 36415; 80048; 85025; 90471; 90715; 96365; 96375; 99283; 99284; J1170

== ENCOUNTER 2021-04-05 12:00 | Outpatient (CLI) | payer OTHER, MEDICAID | END 2021-04-05 23:59 | disposition home or self-care (01) | LOC: LAB.S 12:00 | PROVIDERS: ATTEND Emergency Medicine | DX: L02.01 Cutaneous abscess of face (principal) | CPT/HCPCS: 81599; 87070; 87181; 87205; 87252; 87254; 87255 ==

== ENCOUNTER 2021-04-08 08:00 | Outpatient (CLI) | payer MEDICAID, OTHER | END 2021-04-08 23:59 | disposition home or self-care (01) | LOC: LAB.S 08:00 | PROVIDERS: ATTEND Emergency Medicine | DX: R51.9 Headache, unspecified (principal); Z20.822 Contact with and (suspected) exposure to COVID-19 ==

== ENCOUNTER 2021-04-18 10:46 | Outpatient (CLI) | payer MEDICAID ==
--- NOTE | 2021-04-19 11:47 | Mammography Report ---
BILATERAL DIGITAL SCREENING MAMMOGRAM 3D/2D WITH EXAGGERATED CC: 04/18/2021 CLINICAL: Routine screening. Family history of breast cancer. Comparison is made to exam dated: 06/22/2015 mammogram - [facility]. The tissue of both breasts is heterogeneously dense. This may lower the sensitivity of mammography. No significant masses, calcifications, or other findings are seen in either breast. There has been no significant interval change. IMPRESSION: NEGATIVE There is no mammographic evidence of malignancy. A 1 year screening mammogram is recommended. This exam was interpreted at Station ID: [id number]. NOTE: For mammograms, a report in lay terms will be sent to the patient. Approximately 15% of breast malignancies will not be visualized mammographically. In the management of a palpable breast mass, a negative mammogram must not discourage biopsy of a clinically suspicious lesion. Electronically Signed By: Joshua Ramos M.D. aty/penrad:04/18/2021 12:38:53 ACR BI-RADS Category 1: Negative 3341F PARENCHYMAL PATTERN: (D) - The breast(s) demonstrate(s) heterogeneously dense fibroglandular marcelino kitchen. BI-RADS CATEGORY: (1) - 1 RECOMMENDATION: (ANNUAL) - Recommend routine annual screening mammography. [id number] 1 year screening LATERALITY: (B)
== END 2021-04-18 10:47 | disposition home or self-care (01) ==
LOC: DI.S 10:46
DX: Z12.31 Encounter for screening mammogram for malignant neoplasm of breast (principal); Z80.3 Family history of malignant neoplasm of breast

== ENCOUNTER 2021-08-10 08:00 | Outpatient (CLI) | payer MEDICAID ==
--- NOTE | 2021-08-11 12:24 | XRAY Report ---
PROCEDURE: Lumbar Spine 2 View INDICATIONS: LOW BACK PAIN TECHNIQUE: 3 views of the lumbar spine were acquired. COMPARISON: None. FINDINGS: There are 5 nonrib-bearing lumbar-type vertebral bodies. Mild thoracolumbar dextroscoliosis. No listh esis. Vertebral body heights maintained. No suspicious lytic or blastic osseous lesion. Disc height l oss at every level in the lumbar spine with associated degenerative endplate change and facet hypertr ophy. Findings most pronounced at L3-L4, L4-L5, and L5-S1. IMPRESSION: Diffuse moderate lumbar spine degenerative changes most pronounced from L3 L4 through L5 S1 where there is suspected mild to moderate neural foraminal stenosis. MRI recommended. Reviewed by: Jose Quinones MD on 08/11/2021 12:23 PM PDT Approved by: Jose Quinones MD on 08/11/2021 12:23 PM PDT Station ID: [id number]
== END 2021-08-10 23:59 | disposition home or self-care (01) ==
LOC: DI.S 08:00
PROVIDERS: ATTEND Registered Nurse
DX: M51.36 Other intervertebral disc degeneration, lumbar region (principal); M47.816 Spondylosis without myelopathy or radiculopathy, lumbar region; M51.37 Other intervertebral disc degeneration, lumbosacral region; M47.817 Spondylosis without myelopathy or radiculopathy, lumbosacral region

== ENCOUNTER 2022-02-15 13:21 | Outpatient (CLI) | payer MEDICAID ==
[2022-02-15 19:45] LABS: BASOPHILS % (AUTO) 0.8 %; EOSINOPHILS # (AUTO) 0.1 10^3/uL (0.0-0.7); EOSINOPHILS % (AUTO) 1.9 %; HCT - HEMATOCRIT 44.8 % (37.0-47.0); HGB - HEMOGLOBIN 14.5 g/dL (12.0-16.0); LYMPHOCYTES # (AUTO) 1.6 10^3/uL (1.5-3.5); LYMPHOCYTES % (AUTO) 43.3 %; MEAN CORPUSCULAR HEMOGLOBIN 29.7 pg (27.0-31.0); MEAN CORPUSCULAR HGB CONC 32.4 g/dL (32.0-36.0); MEAN CORPUSCULAR VOLUME 91.6 fL (81.0-99.0); MEAN PLATELET VOLUME 10.8 fL (7.9-10.8); MONOCYTES # (AUTO) 0.3 10^3/uL (0.0-1.0); NEUTROPHILS # (AUTO) 1.8 10^3/uL (1.5-6.6); NEUTROPHILS % (AUTO) 46.7 %; PLT - PLATELET COUNT 221 10^3/uL (130-450); RED BLOOD COUNT 4.89 10^6/uL (4.20-5.40); RED CELL DISTRIBUTION WIDTH 13.2 % (12.0-15.0); WHITE BLOOD COUNT 3.7 x10^3/uL (4.8-10.8)
[2022-02-15 20:05] LABS: ALBUMIN 4.2 g/dL (3.2-5.5); ALBUMIN/GLOBULIN RATIO 1.4 (1.0-2.2); ALKALINE PHOSPHATASE 46 IU/L (42-121); ALT ALANINE AMINOTRANSFERASE 13 IU/L (10-60); AST ASPARTATE AMINOTRANSFERASE 16 IU/L (10-42); BILIRUBIN,TOTAL 0.9 mg/dL (0.2-1.0); BUN - BLOOD UREA NITROGEN 13 mg/dL (6-20); CALCIUM 9.5 mg/dL (8.5-10.3); CARBON DIOXIDE - CO2 29 mmol/L (21-32); CHLORIDE 98 mmol/L (101-111); CHOL/HDL RATIO 2.7 (<4.4); CHOLESTEROL 272 mg/dL; CREATININE 0.8 mg/dL (0.4-1.0); GFR - MDRD 73 (>89); GLUCOSE 89 mg/dL (70-100); HDL CHOLESTEROL 100 mg/dL; LDL CHOLESTEROL,CALCULATED 143 mg/dL; LDL/HDL RATIO 1.4 (<4.4); POTASSIUM 3.6 mmol/L (3.5-5.0); SODIUM 135 mmol/L (135-145); TOTAL PROTEIN 7.2 g/dL (6.7-8.2); TRIGLYCERIDES 143 mg/dL; VLDL CHOLESTEROL 29 mg/dL
[2022-02-15 20:17] LABS: THYROID STIMULATING HORMONE 2.52 uIU/mL (0.34-5.60)
== END 2022-02-15 13:22 | disposition home or self-care (01) ==
LOC: LAB.S 13:21
PROVIDERS: ATTEND Registered Nurse
DX: E78.5 Hyperlipidemia, unspecified (principal); D72.819 Decreased white blood cell count, unspecified; D49.7 Neoplasm of unspecified behavior of endocrine glands and other parts of nervous system; Z79.899 Other long term (current) drug therapy; Z13.29 Encounter for screening for other suspected endocrine disorder
CPT/HCPCS: 36415; 80053; 80061; 83721; 84443; 85025

== ENCOUNTER 2022-04-25 10:44 | Outpatient (CLI) | payer MEDICAID ==
--- NOTE | 2022-04-26 11:00 | Mammography Report ---
BILATERAL DIGITAL SCREENING MAMMOGRAM 3D/2D WITH EXAGGERATED CC: 04/25/2022 CLINICAL: Routine screening. Family history of breast cancer. Comparison is made to exams dated: 04/18/2021 mammogram and 06/22/2015 mammogram - [facility]. Both breasts are heterogeneously dense, which may obscure small masses (category c / 51-75% glandular tissue). No significant masses, calcifications, or other findings are seen in either breast. There has been no significant interval change. IMPRESSION: NEGATIVE There is no mammographic evidence of malignancy. A 1 year screening mammogram is recommended. Based on the Tyrer Cuzick model (a risk assessment model) the patients lifetime risk is 8.4% and her 10 year risk is 3.7%. According to the ACR, ACS, and NCCN guidelines, an annual breast MRI exam maru g with mammogram is recommended if the patients lifetime risk is 20% or greater. This exam was interpreted at Station ID: [id number]. NOTE: For mammograms, a report in lay terms will be sent to the patient. Approximately 15% of breast malignancies will not be visualized mammographically. In the management of a palpable breast mass, a negative mammogram must not discourage biopsy of a clinically suspicious lesion. Electronically Signed By: Sanjay pearce/jose r:04/25/2022 11:47:43 ACR BI-RADS Category 1: Negative 3341F PARENCHYMAL PATTERN: (D) - The breast(s) demonstrate(s) heterogeneously dense fibroglandular marcelino kitchen. BI-RADS CATEGORY: (1) - 1 RECOMMENDATION: (ANNUAL) - Recommend routine annual screening mammography. [id number] 1 year screening LATERALITY: (B)
== END 2022-04-25 10:45 | disposition home or self-care (01) ==
LOC: DI.S 10:44
PROVIDERS: ATTEND Registered Nurse
DX: Z12.31 Encounter for screening mammogram for malignant neoplasm of breast (principal); Z80.3 Family history of malignant neoplasm of breast

== ENCOUNTER 2022-04-27 11:51 | Outpatient (CLI) | payer MEDICAID ==
[2022-04-28 08:08] LABS: PROGESTERONE 0.6 ng/mL (.)
== END 2022-04-27 11:52 | disposition home or self-care (01) ==
LOC: LAB.S 11:51
PROVIDERS: ATTEND Naturopath
DX: Z79.890 Hormone replacement therapy (principal)
CPT/HCPCS: 36415; 82626; 82672; 84144

== ENCOUNTER 2022-08-20 10:52 | Outpatient (CLI) | payer MEDICAID | END 2022-08-20 10:53 | disposition home or self-care (01) | LOC: LAB.S 10:52 | PROVIDERS: ATTEND Registered Nurse | DX: K52.9 Noninfective gastroenteritis and colitis, unspecified (principal) | CPT/HCPCS: 36415; 86140 ==

== ENCOUNTER 2022-12-24 08:53 | Outpatient (CLI) | payer MEDICAID ==
[2022-12-24 12:37] LABS: BASOPHILS % (AUTO) 1.3 %; EOSINOPHILS # (AUTO) 0.1 10^3/uL (0.0-0.7); EOSINOPHILS % (AUTO) 2.5 %; HCT - HEMATOCRIT 43.2 % (37.0-47.0); HGB - HEMOGLOBIN 13.5 g/dL (12.0-16.0); LYMPHOCYTES # (AUTO) 1.4 10^3/uL (1.5-3.5); LYMPHOCYTES % (AUTO) 42.6 %; MEAN CORPUSCULAR HEMOGLOBIN 29.3 pg (27.0-31.0); MEAN CORPUSCULAR HGB CONC 31.3 g/dL (32.0-36.0); MEAN CORPUSCULAR VOLUME 93.9 fL (81.0-99.0); MEAN PLATELET VOLUME 10.1 fL (7.9-10.8); MONOCYTES # (AUTO) 0.3 10^3/uL (0.0-1.0); MONOCYTES % (AUTO) 8.8 %; NEUTROPHILS # (AUTO) 1.4 10^3/uL (1.5-6.6); NEUTROPHILS % (AUTO) 44.5 %; PLT - PLATELET COUNT 248 10^3/uL (130-450); RED CELL DISTRIBUTION WIDTH 12.9 % (12.0-15.0); WHITE BLOOD COUNT 3.2 x10^3/uL (4.8-10.8)
[2022-12-24 12:48] LABS: ALBUMIN 3.8 g/dL (3.2-5.5); ALBUMIN/GLOBULIN RATIO 1.4 (1.0-2.2); ALKALINE PHOSPHATASE 50 IU/L (42-121); ALT ALANINE AMINOTRANSFERASE 8 IU/L (10-60); AST ASPARTATE AMINOTRANSFERASE 12 IU/L (10-42); BILIRUBIN,TOTAL 0.6 mg/dL (0.2-1.0); BUN - BLOOD UREA NITROGEN 14 mg/dL (6-20); CALCIUM 9.1 mg/dL (8.5-10.3); CARBON DIOXIDE - CO2 32 mmol/L (21-32); CHLORIDE 105 mmol/L (101-111); CHOL/HDL RATIO 2.6 (<4.4); CHOLESTEROL 246 mg/dL; CREATININE 0.8 mg/dL (0.6-1.3); CRP HIGH SENSITIVITY 1.02 mg/L; GFR - MDRD 72 (>89); GLUCOSE 90 mg/dL (74-104); HDL CHOLESTEROL 95 mg/dL; LDL CHOLESTEROL,CALCULATED 115 mg/dL; LDL/HDL RATIO 1.2 (<4.4); POTASSIUM 4.2 mmol/L (3.5-4.5); SODIUM 140 mmol/L (135-145); TOTAL PROTEIN 6.5 g/dL (6.4-8.9); TRIGLYCERIDES 180 mg/dL (48-352); VLDL CHOLESTEROL 36 mg/dL
[2022-12-24 12:49] LABS: ESTIMATED AVERAGE GLUCOSE 111 mg/dL (70-100); HEMOGLOBIN A1c% 5.5 % (4.27-6.07)
[2022-12-24 12:59] LABS: THYROID STIMULATING HORMONE 2.33 uIU/mL (0.34-5.60)
[2022-12-25 06:10] LABS: ESTRADIOL 73.6 pg/mL (.)
[2022-12-25 14:08] LABS: THYROGLOBULIN ANTIBODY <1.0 IU/mL (0.0-0.9); THYROID PEROXIDASE (TPO) AB 10 IU/mL (0-34)
[2022-12-27 16:08] LABS: REVERSE T3 SERUM 11.3 ng/dL (.)
== END 2022-12-24 08:54 | disposition home or self-care (01) ==
LOC: LAB.N 08:53
DX: E03.9 Hypothyroidism, unspecified (principal); Z79.890 Hormone replacement therapy; Z13.0 Encounter for screening for diseases of the blood and blood-forming organs and certain disorders involving the immune mechanism; Z13.1 Encounter for screening for diabetes mellitus; Z13.21 Encounter for screening for nutritional disorder; Z13.220 Encounter for screening for lipoid disorders; Z13.29 Encounter for screening for other suspected endocrine disorder; Z13.6 Encounter for screening for cardiovascular disorders; R53.83 Other fatigue
CPT/HCPCS: 36415; 80053; 80061; 82627; 82670; 82672; 83036; 83721; 84144; 84403; 84439; 84443; 84481; 84482; 85025; 86141; 86376; 86800